=== PATIENT | female | born 1990 | race Caucasian/White ===

== ENCOUNTER 2020-02-01 15:08 | Outpatient (CLI) | payer OTHER, SELFPAY ==
--- NOTE | ~2020-02-01 | CT_ITS ---
EXAMINATION: CT abdomen pelvis wo con EXAM DATE: 02/01/2020 15:34 INDICATION: Low back pain, hematuria. TECHNIQUE: Spiral CT of the abdomen and pelvis was performed without contrast. Axial, coronal and sag ittal images were reviewed. The dose-length product (DLP) for this examination was 1370.04 mGy-cm. The exposure was tailored according to patient size (auto mA exposure control), and iterative reconst ruction (ASIR) was used as additional dose reduction technique. There is no prior study for comparis on. FINDINGS: There is no nephrolithiasis or hydronephrosis. Uterus is anteverted. Complex cystic bilat eral ovarian masses versus polycystic kidney disease, with the left ovary measuring about 10 cm in ma ximal dimension and the right ovary measuring about 9 cm in maximal dimension. The bladder is unrema rkable. There is mild hepatic steatosis without suspicious focal lesion identified. Spleen, adrenal glands, pancreas are unremarkable. Gallbladder is unremarkable. No biliary obstruction. There is n o retroperitoneal or pelvic lymphadenopathy. The appendix is normal. The stomach and small bowel are unremarkable. There is expected amount of c olonic stool. No free intraperitoneal gas. The heart is normal in size. There are no pericardial or pleural effusions. The lung bases are unremarkable. The bones are unremarkable. IMPRESSION: 1. Complex cystic bilateral ovarian masses vs. Polycystic ovaries or hyperstimulation syndrome. Cons ider pelvic sonogram, [employer] consult. 2. No nephrolithiasis, hydronephrosis or acute intra-abdominal findings Reviewed, dictated and finalized at location A. IMPRESSION: 1. Complex cystic bilateral ovarian masses vs. Polycystic ovaries or hyperstim ulation syndrome. Consider pelvic sonogram, [employer] consult. 2. No nephrolithiasis, hydronephrosis or acute intra-abdominal findings
[2020-02-01 16:36] LABS: Anion Gap 12.4 mmol/L (7-16); Blood Urea Nitrogen 11 mg/dL (7-17); Calcium 9.2 mg/dL (8.4-10.2); Carbon Dioxide 28 mmol/L (22-30); Chloride 103 mmol/L (98-107); Estimated Glomerular Filt Rate > 60; Glucose 100 mg/dL (65-105); Potassium 4.4 mmol/L (3.4-5.0); Sodium 139 mmol/L (137-145)
[2020-02-01 16:47] LABS: Hemoglobin 13.3 g/dL (12.0-15.0); Mean Corpuscular HGB Conc 31.7 g/dl (32-36); Mean Corpuscular Hemoglobin 26.1 pg (26-34); Mean Corpuscular Volume 82.5 fl (80-100); Mean Platelet Volume 10.4 fl (7.4-10.4); Platelet Count Result 304 k/mm3 (150-375); Red Blood Count 5.09 M/mm3 (4.2-5.4); Red Cell Distribution Width 13.2 % (11.5-14.5); White Blood Count 11.3 K/mm3 (4.5-10.0)
== END 2020-02-01 15:09 | disposition home or self-care (01) ==
PROVIDERS: PCP Family Medicine; Visit Provider Nurse Practitioner Family
DX: R31.9 Hematuria, unspecified (principal); R10.9 Unspecified abdominal pain; M54.5 Low back pain; R93.89 Abnormal findings on diagnostic imaging of other specified body structures
CPT/HCPCS: 36415; 74176; 80048; 85027

== ENCOUNTER 2020-02-02 08:11 | Emergency (ER) | payer OTHER, SELFPAY ==
--- NOTE | ~2020-02-02 | US_ITS ---
US pelvic complete w TV DATE: 02/02/2020 08:59 INDICATION: Abnormal vaginal bleeding TECHNIQUE: Real-time imaging via transabdominal and transvaginal approaches COMPARISON: 02/01/2020 CT abdomen pelvis FINDINGS: The uterus measures 8.9 cm height, 4.3 cm AP and 5.4 cm transverse dimension. Endometrial c omplex measures approximately 12 mm AP dimension. There is a large multi locular complex mixed cystic and solid pelvic mass extending across the midlin e. No normal left or right ovary is evident. The lesion appears to measure in excess of 10 cm maximal dimension. IMPRESSION: Large complex multi locular mass in the pelvis, likely of ovarian origin. Malignancy is n ot excluded. Gynecologic consult is recommended. Reviewed, dictated and finalized at [facility]. Reviewed, dictated and finalized at location A. IMPRESSION: Large complex multi locular mass in the pelvis, likely of ovarian o rigin. Malignancy is not excluded. Gynecologic consult is recommended.
[2020-02-02 08:19] VITALS: BP 131/80; PULSE 79; RESP 18; TEMP 36.4; O2SAT 100
--- NOTE | 2020-02-02 08:42 | ED.FEMALEGU ---
HPI - Female Genitourinary General Chief complaint: Vaginal Bleeding Stated complaint: vag bleed, back pain Time Seen by Provider: 02/02/20 08:20 Source: patient Mode of arrival: ambulatory Limitations: no limitations History of Present Illness HPI Narrative: This patient is a 29 year old female who presents for evaluation of back pain and abnormal vaginal bleeding. Patient states she developed mid lower back pain on . She reports this pain is worse with movement. She has been taking tylenol without relief. She was evaluated by her PCP yesterday for this pain and she had labs and a CT abdomen /pelvis performed. Her CT shows polycystic ovaries but no other abnormalities. This morning she has come to ER because she started having heavy vaginal bleeding. Her last menstrual cycle was 2 weeks ago and she reports her bleeding was light. Previous to that cycle she had not had a period in months. Today she started having vaginal bleeding at 5 am. She reported passing large blood clot so she became scared. She has only used 2 pad since 5 am. She denies fever, vomiting, lightheadedness or dizziness. Related Data Allergies Allergy/AdvReac Type Severity Reaction Status Date / Time No Known Allergies Allergy Verified 02/02/20 08:22 Review of Systems Review of Systems: All systems reviewed & are unremarkable except as noted in HPI and below Constitutional: Constitutional: Reports as per HPI and Denies chills Gastrointestinal: Gastrointestinal: Denies abdominal pain, Denies nausea and Denies vomiting Genitourinary: Genitourinary: Reports abnormal vaginal bleeding Musculoskeletal: Musculoskeletal: Reports back pain PMFSH Social History Social History Smoking status: Never smoker Alcohol intake: never Exam Narrative: Exam Narrative: GENERAL: Well-appearing, well-nourished, and in no acute distress. HEAD: Normocephalic, atraumatic EYES: PERRLA and EOMI, conjunctiva clear without discharge EARS: TM's clear bilaterally without erythema or dullness NOSE: Nares clear, no rhinorrhea or epistaxis THROAT:Mucous membranes moist, Oropharynx normal without erythema, exudate, peritonsillar swelling or fluctuance NECK: Supple, without lymphadenopathy or mass RESPIRATORY: No respiratory distress, Airway patent, Respirations non-labored, Clear to auscultation without rales, rhonchi or wheeze HEART: Regular rate and rhythm. No murmur heard. Normal peripheral pulses. ABDOMEN: Soft, nontender, nondistended, normal active bowel sounds. No masses. No rebound or guarding, No organomegaly. EXTREMITIES: No edema, normal strength with full range of motion. SKIN: Warm, dry, normal color without rash NEURO: Alert and oriented x3. CN 2-12 grossly intact. No focal deficits. PSYCH: Normal mood and affect. : Speculum Exam - Vagina: vaginal bleeding (minimal vaginal bleeding, no clots) Back/Spine/Pelvis: Back: no CVA tenderness Course Consultations Consultation #1: I Discsused case with Dr. Sunni Vuong who states he can see patient on Tuesday morning anytime after 8 am . Okay to prescribe pain medication Date: 02/02/20 Time: 10:00 Vital Signs Vital signs: Vital Signs Temperature 97.6 F 02/02/20 08:19 Pulse Rate 79 02/02/20 08:19 Respiratory Rate 18 02/02/20 08:19 Blood Pressure 131/80 02/02/20 08:19 Pulse Oximetry 100 02/02/20 08:19 Temperature 97.6 F 02/02/20 08:19 Pulse Rate 82 02/02/20 12:00 Respiratory Rate 19 02/02/20 12:00 Blood Pressure 125/76 02/02/20 12:00 Pulse Oximetry 100 02/02/20 12:00 MDM - Female Genitourinary Lab Data Attestation: I reviewed the patient's lab results. Lab results narrative: patient had lab less than 24 hours ago. her bleeding is not significant to believe repeat labs needed. Labs: UCG Bedside Result Negative Reference Range: Negative Imaging Data Radio
[2020-02-02] MEDS: diazePAM 5 MG TABLET PO (09:04)
[2020-02-02] MEDS: KETOROLAC (*BKC) 60 MG/2 ML VIAL IM (09:04)
[2020-02-02 09:14] VITALS: BP 123/75; BP 125/73; PULSE 86; PULSE 87
[2020-02-02 09:15] VITALS: BP 99/72; PULSE 101
[2020-02-02 12:00] VITALS: BP 125/76; PULSE 82; RESP 19; O2SAT 100
== END 2020-02-02 12:01 | disposition home or self-care (01) ==
PROVIDERS: Emergency Provider General Practice; PCP Family Medicine
DX: E28.2 Polycystic ovarian syndrome (principal)
CPT/HCPCS: 76830; 76856; 81025; 96372; 99284; A9270; J1885

== ENCOUNTER 2020-02-07 07:58 | Outpatient (CLI) | payer OTHER, SELFPAY ==
[2020-02-07 08:17] LABS: Hematocrit 44.3 % (37.0-47.0); Hemoglobin 14.1 g/dL (12.0-15.0); Mean Corpuscular HGB Conc 31.8 g/dl (32-36); Mean Corpuscular Volume 81.6 fl (80-100); Mean Platelet Volume 10.1 fl (7.4-10.4); Platelet Count Result 314 k/mm3 (150-375); Red Blood Count 5.43 M/mm3 (4.2-5.4); Red Cell Distribution Width 13.4 % (11.5-14.5); White Blood Count 11.3 K/mm3 (4.5-10.0)
[2020-02-07 08:29] LABS: Anion Gap 13.4 mmol/L (7-16); Blood Urea Nitrogen 12 mg/dL (7-17); Calcium 9.3 mg/dL (8.4-10.2); Carbon Dioxide 29 mmol/L (22-30); Chloride 99 mmol/L (98-107); Estimated Glomerular Filt Rate > 60; Glucose 107 mg/dL (65-105); Potassium 4.4 mmol/L (3.4-5.0); Sodium 137 mmol/L (137-145)
== END 2020-02-07 07:59 | disposition home or self-care (01) ==
PROVIDERS: Anesthesiology; PCP Family Medicine; Visit Provider Student in an Organized Health Care Education/Training Program
DX: Z79.899 Other long term (current) drug therapy (principal); R10.2 Pelvic and perineal pain; Z01.818 Encounter for other preprocedural examination
CPT/HCPCS: 36415; 80048; 85027; 86850; 86900; 86901

== ENCOUNTER 2020-02-12 01:00 | Outpatient (CLI) | payer OTHER, SELFPAY ==
[2020-02-12 19:35] LABS: SARS-CoV-2 RNA PCR Negative
== END 2020-02-12 01:01 | disposition home or self-care (01) ==
LOC: ANHCOVIDDT 01:00
PROVIDERS: PCP Family Medicine; Visit Provider Student in an Organized Health Care Education/Training Program
DX: Z01.812 Encounter for preprocedural laboratory examination (principal); Z11.59 Encounter for screening for other viral diseases
CPT/HCPCS: 87635; C9803; U0003

== ENCOUNTER 2020-02-14 01:40 | Day surgery (SDC) | payer OTHER, SELFPAY ==
[2020-02-06 12:32] VITALS: BMI 48.7
[2020-02-14] VITALS (11 sets, daily range): BP systolic 106–152; BP diastolic 70–95; PULSE 60–101; RESP 10–16; TEMP 36.1–36.7; O2SAT 92–100
--- NOTE | 2020-02-14 07:41 | PM.IMHP ---
H&P: HPI History of Present Illness Date/Time: 02/14/20 07:41 Chief complaint: pain, right ovarian mass Narrative: Janis Cardoso is a 29 year old female who initially presented with back pain. Pt suffered from back pain for over a week without relief before presented to the ER. Imaging performed in the ER showed a 10cm complex cystic structure coming from her ovary. Pt reports a history of PCOS diagnosed at the age of 20. She has had 2 prior ovarian cyst removal surgeries. Given the size of the cystic structure and the patient being symptomatic, decision was made to proceed with another surgery to remove the cyst. Review of Systems Cardiovascular: Cardiovascular: Denies chest pain, Denies leg edema, Denies palpitations, Denies dyspnea and Denies dyspnea on exertion Respiratory: Respiratory: Denies cough, Denies dyspnea and Denies dyspnea on exertion Gastrointestinal: Gastrointestinal: Denies abdominal pain, Denies constipation, Denies diarrhea, Denies nausea and Denies vomiting Genitourinary: Genitourinary: Denies hematuria, Denies urinary frequency, Denies dysuria, Denies pelvic pain, Denies urinary incontinence and Denies vaginal discharge Neurologic: Reports system reviewed and no additional complaints, except as documented Psychiatric: Psychiatric: Reports no additional psychiatric complaints Endocrine: Endocrine: Denies palpitations PMFSH Social History Social History Smoking status: Never smoker Alcohol intake: never Spiritual care concerns: No Meds Home Medications and Allergies Home Medications Medication Instructions Recorded Confirmed Type acetaminophen 300 mg-codeine 30 mg 1 tablet PO Q8H PRN #14 tablet 02/01/20 02/06/20 Rx tablet ciprofloxacin HCl 500 mg tablet 500 mg PO Q12H #10 tablet 02/01/20 02/06/20 Rx oxycodone-acetaminophen [Percocet] 1 tablet PO Q6H PRN #14 tablet 02/02/20 02/06/20 Rx drospirenone-ethinyl estradiol 1 tablet PO DAILY 02/06/20 02/06/20 History metformin 500 mg PO BID 02/06/20 02/06/20 History spironolactone 100 mg PO BID 02/06/20 02/06/20 History Allergies Allergy/AdvReac Type Severity Reaction Status Date / Time latex Allergy rash, Verified 07/29/20 12:33 swelling Exam Const: General: no acute distress Eyes: EOM: EOMs intact bilaterally Neck: Neck: supple Thyroid: thyroid normal Chest: Breast/axilla inspection: normal inspection of the breasts Breast/axilla palpation: normal palpation of the breasts, normal palpation of the axillae and no axillary lymphadenopathy Resp: Effort & Inspection: normal respiratory effort Auscultation: clear to auscultation bilaterally Cardio: Rate: regular rate Rhythm: regular rhythm GI: Inspection: non-distended GI Palp: Yes Soft to palpation, No Tenderness to palpation present (GI) and No Guarding due to palpation present (GI) Auscultation: normal bowel sounds : General: No bladder normal to palpation External Female Exam: normal external appearance Speculum Exam - Vagina: normal vaginal discharge and No vaginal bleeding Speculum Exam - Cervix: nontender Bimanual exam- vagina & uterus: No bladder normal to palpation and No Cervical tenderness present OB/external & speculum: No vaginal bleeding Skin: General skin exam: normal color and no rashes or lesions noted Neuro: Cognition (Neuro): normal cognition Speech: normal speech Extrem: General: normal to inspection and no edema Psych: Mental Status: mental status grossly normal Affect: normal affect Assessment and Plan Assessment and plan (1) Ovarian cyst: Code(s): N83.209 - Unspecified ovarian cyst, unspecified side Status: Acute Assessment and Plan: pt presented with back pain and was found to have a 10cm complex cystic structure originating from the Right ovary pt has had 2 prior ovarian cystectomies pt struggles with PCOS given the size and symptoms patient is having,
[2020-02-14] MEDS: LACTATED RINGERS 1,000 ML 30 ML IV CONT ×2 (10:55→14:33)
[2020-02-14] MEDS: ACETAMINOPHEN 500 MG TABLET 1000 MG PO (10:59)
[2020-02-14] MEDS: KETOROLAC 15 MG/ML VIAL (*BKC) IV PUSH (11:00)
--- NOTE | 2020-02-14 11:34 | P.PNAN_ITS ---
Anes - Initial Pre Proc Eval Procedure: Operation Date: 02/14/20 12:00 Proposed Procedures p Laparoscopic Right Ovarian Cystectomy, Possible Right Salpingo-Oophorectomy - Johny Singh MD Date/Time: 02/14/20 11:34 Surgeon: Johny Singh MD Pre Op Diagnosis: pain, right ovarian mass Patient Data Age: 29 Gender: F Height: 5 ft 9 in Weight: 141.5 kg Last Vital Signs Temp 36.7 C 02/14/20 10:00 Pulse 101 H 02/14/20 10:00 Resp 16 02/14/20 10:00 BP 111/95 H 02/14/20 10:00 Pulse Ox 97 02/14/20 10:00 Allergies Allergy/AdvReac Type Severity Reaction Status Date / Time latex Allergy rash, Verified 02/06/20 12:33 swelling Home Medications Medication Instructions Recorded Confirmed Type acetaminophen 300 mg-codeine 30 mg 1 tablet PO Q8H PRN #14 tablet 02/01/20 02/06/20 Rx tablet ciprofloxacin HCl 500 mg tablet 500 mg PO Q12H #10 tablet 02/01/20 02/06/20 Rx oxycodone-acetaminophen [Percocet] 1 tablet PO Q6H PRN #14 tablet 02/02/20 02/06/20 Rx drospirenone-ethinyl estradiol 1 tablet PO DAILY 02/06/20 02/06/20 History metformin 500 mg PO BID 02/06/20 02/06/20 History spironolactone 100 mg PO BID 02/06/20 02/06/20 History Patient hx anesthesia problems: none Family hx anesthesia problems: none [facility] Past Medical History Medical History Polycystic ovarian syndrome Family History Family History Mother Family history of allergic disorder Father Family history of diabetes mellitus in first degree relative Other Diabetes mellitus Social History Social History Smoking status: Never smoker Alcohol intake: never Spiritual care concerns: No Anes - Eval Final PreProcedure Day of Procedure 02/14/20 11:34 Patient weight: morbidly obese Heart: regular rate and rhythm Lungs: clear to auscultation Airway: Mallampati scale class II Neurological: alert and oriented Last oral intake: >/= 8 hours ASA classification: III Emergent: no Anesthetic plan: proceed Anesthesia type and monitoring: general ETT and standard monitoring Informed Consent: The patient's anesthetic plan and its attendant risks and benefits were discussed with the patient/family/POA. Questions were solicited and answers provided to the satisfaction of the patient/family/POA.
[2020-02-14] MEDS: METHYLENE BLUE 0.5% INJ 10 ML AMPULE 20 ML IRRIGATION (14:08)
--- NOTE | 2020-02-14 14:46 | PM.PROC ---
Procedure Note - Detailed Date of procedure: 02/14/20 Pre-op diagnosis: pain, right ovarian mass Procedure performed: Diagnostic laparoscopy left salpingo-oophorectomy right ovarian cystostomy cystoscopy Description of procedure: FULL GYNECOLOGY OPERATIVE REPORT INDICATIONS: The risks, benefits and alternatives of laparoscopy were discussed with the patient, including but not limited to infection, severe loss of blood, cardiac arrest, , thrombosis, injury to other organs such as bowel, bladder or ureter, fistula, injury to blood vessels, risk of blood transfusion, loss of one or more ovary, and possible need for laparotomy to complete the surgery or any repair. OPERATIVE PROCEDURE: The patient was taken to the operating room where general endotracheal anesthesia was undertaken and found to be adequate. She was then prepped and draped in the dorsal lithotomy position and placed in adjustable stirrups. A pre-operative team brief and a time out were completed. A catheter was placed to drain the bladder. Retractors were placed placed in the vagina and the cervix was identified. An acorn uterine manipulator was placed. [Attention was then turned to the abdomen which was anesthetized umbilically with injected anesthestic. A 10 mm skin incision was made in the umbilicus. A 10 mm optical trocar was then placed with direct camera visualization of the abdominal layers during placement. The trocar stylet was removed and the camera was used to verify intra-abdominal placement. CO2 insufflation was then connected and resumed. The pelvis was inspected. The left ovarian was noted to be enlarged with several cysts. The ovary was also adherent to the bowel omentum and pelvic side wall. A left lower quadrant 5 mm port was placed, in addition to a right lower quadrant 5 port in the standard fashion after using local anesthetic. The large amount of omental adhesions were carefully taken down from the ovary using the Ligasure device. Once the omentum was removed from the ovary, the ovary was noted to have a large amount of cysts. Laparoscopic aspiration needle was introduced into the field under direct visualization. Multiple cysts were then drained with the needle placed on suction. Clear fluid was drained from the cysts. After draining several cysts it was indiscernible what was function ovary vs cyst. The ovary was also still adherent to the pelvic side wall. The decision was then made to proceed with left salpingo-oophorectomy. The left pelvic sidewall peritoneum was incised to help identify the left ureter. The ureter was identified and its course followed. The left ovary was then incised from the pelvic side wall using the Ligasure device all with clear visualization of the ureter. The left infundibulopelvic ligament was identified and triple ligated with the ligasure device. The dissection was then carried out toward the uterus along the inferior mesosalpinx of the left fallopian tube. The left ovary and fallopian tube were then freed from the ovarian ligament. Good hemostasis was noted from all terry. After the left ovary and fallopian tube were removed, it was noted that the right ovary was also covered with inumerable cysts. The right ovary was lifted from the posterior cul de sac. Laparoscopic aspiration needle was again introduced and multiple cysts were drained. Again, clear cystic fluid was drained. All of the accessible cysts were drained and multiple cystotomies were made with a monopolar hook. Given that the left ovary had to be removed, every attempt was made to reserve functional ovarian tissue in the right ovary. After drainage of all cysts, the ovary was placed back in the posterior cul de sac. Good hemostasis was noted. A laparoscopic pouch was then introduced into the abdomen and the left fallopian tube and ovary were placed in the pouch. The surgical specimen was then removed from the abdomen through the umbilical port. The surgical field was thoroughly irriga
[2020-02-14] MEDS: ONDANSETRON INJ 4 MG/2 ML VIAL IV PUSH (15:15)
== END 2020-02-14 17:12 | disposition home or self-care (01) ==
PROVIDERS: PCP Family Medicine; Visit Provider Student in an Organized Health Care Education/Training Program
PROC: (CPT 49320; principal; 2020-02-14 12:00)
DX: D27.1 Benign neoplasm of left ovary (principal); N73.6 Female pelvic peritoneal adhesions (postinfective); R10.2 Pelvic and perineal pain; E28.2 Polycystic ovarian syndrome; E66.01 Morbid (severe) obesity due to excess calories; Z68.42 Body mass index [BMI] 45.0-49.9, adult; Z79.84 Long term (current) use of oral hypoglycemic drugs
CPT/HCPCS: 58661; 88305; 88307; A9270; J0330; J1100; J1885; J1940; J2250; J2405; J2704; J3010; J7030; J7120; Q9968

== ENCOUNTER 2020-08-28 14:03 | Outpatient (CLI) | payer OTHER, SELFPAY ==
--- NOTE | ~2020-08-28 | XR_ITS ---
XR chest 2V DATE: 08/28/2020 14:43 INDICATION: Cough TECHNIQUE: PA and lateral views COMPARISON: None FINDINGS: Normal heart size. No pulmonary infiltrate or consolidation, pleural effusion or pulmonary vascular congestion or pneumothorax. IMPRESSION: No active cardiopulmonary disease Reviewed, dictated and finalized at location B. UTIVE ADMINISTRATIVE ASSISTANT
[2020-08-28 14:50] LABS: Basophils Percent Auto 0.6 % (0.2-1.2); Eosinophils Absolute Auto 0.1 K/mm3 (0-0.3); Eosinophils Percent Auto 2.2 % (0-4.4); Hematocrit 42.5 % (37.0-47.0); Hemoglobin 13.3 g/dL (12.0-15.0); Immature Granulocyte Absolute 0.03 K/mm3 (0.00-0.031); Immature Granulocyte Percent A 0.6 % (0-0.5); Lymphocytes Absolute Auto 2.19 K/mm3 (0.9-3.2); Lymphocytes Percent Auto 40.3 % (18.3-44.2); Mean Corpuscular HGB Conc 31.3 g/dl (32-36); Mean Corpuscular Hemoglobin 25.1 pg (26-34); Mean Corpuscular Volume 80.2 fl (80-100); Mean Platelet Volume 9.9 fl (7.4-10.4); Monocytes Absolute Auto 0.4 K/mm3 (0.1-0.6); Monocytes Percent Auto 8.1 % (2.6-8.5); Neutrophils Absolute Auto 2.6 K/mm3 (1.3-6.7); Neutrophils Percent Auto 48.2 % (45.5-73.1); Platelet Count Result 258 k/mm3 (150-375); Red Cell Distribution Width 14.3 % (11.5-14.5); White Blood Count 5.4 K/mm3 (4.5-10.0)
[2020-08-28 14:55] LABS: Anion Gap 9 mmol/L (8-16); Blood Urea Nitrogen 12 mg/dL (7-17); Calcium 8.5 mg/dL (8.4-10.2); Carbon Dioxide 29 mmol/L (22-30); Chloride 103 mmol/L (98-107); Estimated Glomerular Filt Rate > 60; Glucose 106 mg/dL (65-105); Potassium 4.2 mmol/L (3.4-5.0); Sodium 141 mmol/L (137-145)
== END 2020-08-28 14:04 | disposition home or self-care (01) ==
PROVIDERS: PCP Family Medicine; Visit Provider Nurse Practitioner Family
DX: R19.7 Diarrhea, unspecified (principal); R68.89 Other general symptoms and signs; R05 Cough; R06.02 Shortness of breath
CPT/HCPCS: 36415; 71046; 80048; 85025

== ENCOUNTER → 2020-08-29 08:23 | Outpatient (CLI) | payer OTHER, SELFPAY ==
[2020-08-29 21:58] LABS: SARS-CoV-2 RNA PCR Positive
[2020-09-01 09:24] LABS: Influenza Control Positive
== END ==
PROVIDERS: PCP Family Medicine; Visit Provider Nurse Practitioner Family
DX: U07.1 COVID-19 (principal)
CPT/HCPCS: 87804; C9803; U0003; U0005

== ENCOUNTER 2020-09-10 10:54 | Outpatient (CLI) | payer OTHER, SELFPAY ==
--- NOTE | ~2020-09-10 | XR_ITS ---
EXAMINATION: XR chest 2V DATE: 09/10/2020 11:23 INDICATION: Shortness of breath TECHNIQUE: PA and lateral views of the chest were obtained. COMPARISON: Chest radiograph dated 08/28/2020 FINDINGS: The lungs remain clear with no focal airspace opacities, pulmonary edema, pleural effusion or pneumot horax. The cardiomediastinal silhouette is normal. Mild thoracic spondylosis. IMPRESSION: 1. No acute cardiopulmonary disease. Reviewed, dictated and finalized at location B. ILE ARTIST
--- NOTE | 2020-09-10 11:55 | ECG_ITS ---
Measurements Intervals [place] Rate: 89 P: 45 NV: 137 QRS: 49 QRSD: 90 T: 25 QT: 343 QTc: 417 Interpretive Statements SINUS RHYTHM NORMAL ECG Electronically Signed On 09-10-2020 12:06:00 BOAT DOCK OPERATOR by Damien Gomez D.O.
== END 2020-09-10 10:55 | disposition home or self-care (01) ==
PROVIDERS: PCP Family Medicine; Visit Provider Nurse Practitioner Family
DX: R06.02 Shortness of breath (principal); R00.0 Tachycardia, unspecified
CPT/HCPCS: 71046; 93005

== ENCOUNTER 2020-09-16 14:19 | Outpatient (CLI) | payer OTHER, SELFPAY ==
--- NOTE | ~2020-09-16 | CT_ITS ---
EXAMINATION: CTA chest PE protocol DATE: 09/16/2020 15:31 INDICATION: COVID-19 pneumonia. TECHNIQUE: Computed tomography angiography (CTA) of the chest was performed with 100 mL Omnipaque-350 intravenous contrast timed to evaluate the pulmonary arteries. Coronal maximum intensity projection 3D-reconstructions were created by the technologist. Automated exposure control and iterative reconst ruction technique were employed. The dose-length product was 921.33 mGy-cm. COMPARISON: Chest 2 views 09/10/2020 FINDINGS: There is no pneumonia or pleural effusion. The thyroid is enlarged with heterogeneous atten uation. The heart size is normal. No pericardial effusion. There is no pulmonary embolus. There is mi ld thoracic spondylosis. There is developmental anterior and posterior fusion at T4-T5. IMPRESSION: 1. No pulmonary embolus. 2. Enlarged, heterogeneous thyroid. Consider thyroid ultrasound for risk stratification. Reviewed, dictated and finalized at location A. E FUND MANAGER IMPRESSION: 1. No pulmonary embolus. 2. Enlarged, heterogeneous thyroid. Consider thyroid ultrasound for risk strati fication.
== END 2020-09-16 14:20 | disposition home or self-care (01) ==
PROVIDERS: PCP Family Medicine; Visit Provider Nurse Practitioner Family
DX: U07.1 COVID-19 (principal); R06.02 Shortness of breath; E04.9 Nontoxic goiter, unspecified
CPT/HCPCS: 71275; Q9967

== ENCOUNTER 2020-09-22 13:06 | Outpatient (CLI) | payer OTHER, SELFPAY ==
--- NOTE | ~2020-09-22 | US_ITS ---
EXAMINATION: US thyroid DATE: 09/22/2020 13:44 INDICATION: Enlarged thyroid. Encounter for other specified special examinations. TECHNIQUE: Multiple ultrasound images of the thyroid were obtained. COMPARISON: Chest CT 09/16/2020 FINDINGS: The right thyroid lobe measures 6.0 x 3.1 x 2.6 cm. The left thyroid lobe measures 6.3 x 3.2 x 3.5 c m. In the left thyroid lobe, there is a 3.7 cm predominantly solid, isoechoic, [id number]-[id number]-nucw nodul e with smooth margin without echogenic foci (TI-RADS TR3). In the right thyroid lobe, there is a 2.3 cm predominantly solid, isoechoic, vmgoi-zeqb-vzyx nodule with ill-defined margin without echogenic f oci (TR3). IMPRESSION: 1. Thyroid nodules. Ultrasound-guided fine-needle aspiration of the 3.7 cm left thyroid nodule is rec ommended. Reviewed, dictated and finalized at location A. IMPRESSION: 1. Thyroid nodules. Ultrasound-guided fine-needle aspiration of the 3.7 cm left thyroid nodule is recommended.
== END 2020-09-22 13:07 | disposition home or self-care (01) ==
LOC: ANHIMG 13:07
PROVIDERS: PCP Family Medicine; Visit Provider Nurse Practitioner Family
DX: E04.9 Nontoxic goiter, unspecified (principal); Z01.89 Encounter for other specified special examinations
CPT/HCPCS: 36415; 76536; 84439; 84443

== ENCOUNTER 2020-10-02 11:57 | Outpatient (CLI) | payer OTHER, SELFPAY ==
--- NOTE | ~2020-10-02 | US_ITS ---
EXAMINATION: US FNA w image guidance DATE: 10/02/2020 12:46 INDICATION: Left thyroid nodule TECHNIQUE: A time-out was performed to verify the patient's name, date of , and procedure to be performed . The procedure and its benefits and risks were discussed with the patient. Risks specifically discus sed included bleeding and infection. The patient understood the risks and agreed to proceed. The neck was prepped and draped in the usual sterile manner. 3 mL 1% lidocaine was used for local anesthesia . 6 passes were made with a 25G needle into the lesion. Appropriate needle location was documented with continuous sonographic guidance. The specimens were passed to the cardiac cath lab radiology technologist in the room. A sterile bandage was applied. There were no immediate complications. FINDINGS: Grayscale ultrasound images demonstrate biopsy needles advanced into the previous noted 3.7 cm solid isoechoic left thyroid nodule. IMPRESSION: 1. Successful ultrasound-guided fine needle aspiration of the 3.7 cm solid left thyroid nodule of co ncern. Reviewed, dictated and finalized at location A. IMPRESSION: 1. Successful ultrasound-guided fine needle aspiration of the 3.7 cm solid lef t thyroid nodule of concern.
== END 2020-10-02 11:58 | disposition home or self-care (01) ==
PROVIDERS: PCP Family Medicine; Visit Provider Nurse Practitioner Family
DX: E04.9 Nontoxic goiter, unspecified (principal)
CPT/HCPCS: 10005; 88173; 88305; 88307

== ENCOUNTER 2020-11-16 04:51 | Observation (INO) | payer OTHER, SELFPAY ==
[2020-11-16] VITALS (8 sets, daily range): BP systolic 118–141; BP diastolic 61–105; PULSE 85–110; RESP 16–21; TEMP 36.2–36.8; O2SAT 97–100; BMI 49.2
--- NOTE | ~2020-11-16 | US_ITS ---
EXAMINATION: US pelvic complete w TV DATE: 11/16/2020 07:55 INDICATION: History of polycystic ovary syndrome. Back pain. Comparison:Ultrasound dated 02/02/2020 TECHNIQUE: Multiple transabdominal and endovaginal sonographic images of the pelvis performed. FINDINGS: The uterus measures 8.4 x 4.1 x 4 cm. The endometrial complex measures 5 mm. The right ovary measures 7.8 x 6.4 x 4.9 cm. There is a large cluster of septated cyst in the right o vary measuring 6.5 x 5.3 x 4.1 cm. The left ovary is surgically absent. There is normal Doppler signa l in the right ovary. There is no free fluid in the pelvis. IMPRESSION: 1. Large complex right ovarian cyst measuring 6.5 x 5.3 x 4.1 cm which may relate to patient's known polycystic ovary syndrome, although other considerations suspicious cystadenoma/cystadenocarcinoma ar e not excluded. Reviewed, dictated and finalized at location A. IMPRESSION: 1. Large complex right ovarian cyst measuring 6.5 x 5.3 x 4.1 cm which may rela te to patient's known polycystic ovary syndrome, although other considerations suspicious cystadenoma/cystadenocarcinoma are not excluded.
--- NOTE | 2020-11-16 05:34 | PC.NURSE ---
Pt unable to void at this time. Straight cath refused. Urine cup at bedside.
[2020-11-16] MEDS: KETOROLAC 30 MG/ML VIAL (*BKC) IV PUSH (05:41)
--- NOTE | 2020-11-16 05:48 | ED.BACK ---
HPI - Back Pain/Injury General Chief Complaint: Back Pain/Injury <Magaly Daugherty MD - Last Filed: 11/16/20 19:29> Stated Complaint: lower back pain <Magaly Daugherty MD - Last Filed: 11/16/20 19:29> Time Seen by Provider: 11/16/20 04:58 <Magaly Daugherty MD - Last Filed: 11/16/20 19:29> Source: patient, RN notes reviewed and old records reviewed <Magaly Daugherty MD - Last Filed: 11/16/20 19:29> Mode of arrival: ambulatory <Magaly Daugherty MD - Last Filed: 11/16/20 19:29> Limitations: no limitations <Magaly Daugherty MD - Last Filed: 11/16/20 19:29> History of Present Illness HPI Narrative: This is a 30 year old female with history of polycystic ovarian syndrome who presents for evaluation of low back pain. She developed low back pain yesterday, and she states this pain is similar to when she had a large ovarian cyst in January 2020. She took pain medication yesterday afternoon without relief. Her pain is worse with movement. She denies associated nausea, vomiting, fever, abdominal pain, leg weakness, numbness or tingling. Her OBGYN is Dr. Singh. Pain is 04/19 <Magaly Daugherty MD - Last Filed: 11/16/20 19:29> MD elicited complaint: back pain <Magaly Daugherty MD - Last Filed: 11/16/20 19:29> Related Data Home Medications: Home Medications Medication Instructions Recorded Confirmed spironolactone 100 mg PO BID 02/06/20 09/17/20 leuprolide (3 month) 11.25 mg (3 11.25 mg IM [id number] 08/19/20 09/17/20 month) intramuscular syringe kit metformin 500 mg tablet 500 mg PO DAILY 08/19/20 09/17/20 duloxetine 20 mg PO DAILY 11/16/20 11/16/20 <Magaly Daugherty MD - Last Filed: 11/16/20 19:29> Allergies/Adverse Reactions: Allergies Allergy/AdvReac Type Severity Reaction Status Date / Time latex Allergy Severe rash, Verified 11/16/20 10:05 swelling <Magaly Daugherty MD - Last Filed: 11/16/20 19:29> Review of Systems Review of Systems: All systems reviewed & are unremarkable except as noted in HPI and below <Magaly Daugherty MD - Last Filed: 11/16/20 19:29> FORMERLY [facility], [facility]–1983 Past Medical History Medical History: Medical History Adult BMI 40.0-44.9 kg/sq m Diarrhea Morbid (severe) obesity due to excess calories Morbid obesity Polycystic ovarian syndrome Smell and taste disorder Taste absent <Magaly Daugherty MD - Last Filed: 11/16/20 19:29> Surgical History Surgical History: Surgical History Hx of removal of ovary <Magaly Daugherty MD - Last Filed: 11/16/20 19:29> Family History Family History: Family History Mother No problems noted. 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 Spiritual care concerns: No <Magaly Daugherty MD - Last Filed: 11/16/20 19:29> Exam Const: General: no acute distress and alert <Magaly Daugherty MD - Last Filed: 11/16/20 19:29> Orientation/consciousness: patient oriented x3 <Magaly Daugherty MD - Last Filed: 11/16/20 19:29> HENMT: Head: normocephalic and atraumatic <Magaly Daugherty MD - Last Filed: 11/16/20 19:29> Face and sinus: face symmetric <Magaly Daugherty MD - Last Filed: 11/16/20 19:29> Throat: uvula midline <Magaly Daugherty MD - Last Filed: 11/16/20 19:29> Eyes: EOM: EOMs intact bilaterally <Magaly Daugherty MD - Last Filed: 11/16/20 19:29>
--- NOTE | 2020-11-16 06:01 | PC.NURSE ---
Pt in restroom attempting to provide urine sample at this time.
--- NOTE | 2020-11-16 06:05 | PC.NURSE ---
Pt unable to provide urine sample at this time. Pt refusing straight catheter.
--- NOTE | 2020-11-16 06:22 | PC.NURSE ---
Pt unable to void at this time. Pt refusing straight catheter.
[2020-11-16 06:33] LABS: Basophils Absolute Auto 0.1 K/mm3 (0.0-0.1); Eosinophils Absolute Auto 0.2 K/mm3 (0-0.3); Eosinophils Percent Auto 2.2 % (0-4.4); Hemoglobin 13.6 g/dL (12.0-15.0); Immature Granulocyte Absolute 0.06 K/mm3 (0.00-0.031); Immature Granulocyte Percent A 0.6 % (0-0.5); Lymphocytes Absolute Auto 2.74 K/mm3 (0.9-3.2); Lymphocytes Percent Auto 29.1 % (18.3-44.2); Mean Corpuscular HGB Conc 30.9 g/dl (32-36); Mean Corpuscular Hemoglobin 25.5 pg (26-34); Mean Corpuscular Volume 82.6 fl (80-100); Monocytes Absolute Auto 0.6 K/mm3 (0.1-0.6); Monocytes Percent Auto 5.8 % (2.6-8.5); Neutrophils Absolute Auto 5.8 K/mm3 (1.3-6.7); Neutrophils Percent Auto 61.3 % (45.5-73.1); Platelet Count Result 296 k/mm3 (150-375); Red Blood Count 5.33 M/mm3 (4.2-5.4); Red Cell Distribution Width 13.2 % (11.5-14.5); White Blood Count 9.4 K/mm3 (4.5-10.0)
[2020-11-16] MEDS: HYDROmorphone HCL INJ (*CRX) 1 MG/ML SYR IV PUSH ×2 (06:40→08:21)
[2020-11-16 06:44] LABS: Alanine Aminotransferase 28 U/L (4-35); Albumin Level 4.2 g/dL (3.5-5.1); Alkaline Phosphatase 104 U/L (38-126); Anion Gap 7 mmol/L (8-16); Aspartate Amino Transferase 28 U/L (14-36); Bilirubin,Total 0.4 mg/dL (0.2-1.3); Blood Urea Nitrogen 15 mg/dL (7-17); Calcium 9.4 mg/dL (8.4-10.2); Carbon Dioxide 28 mmol/L (22-30); Chloride 105 mmol/L (98-107); Estimated CRCL calculation 129 ml/min; Estimated Glomerular Filt Rate > 60; Glucose 122 mg/dL (65-105); Potassium 4.3 mmol/L (3.4-5.0); Sodium 140 mmol/L (137-145)
--- NOTE | 2020-11-16 06:50 | PC.NURSE ---
urine sent down on pt at this time.
[2020-11-16 07:20] LABS: Add Urine Microscopic? YES; Appearance Urine Cloudy (Clear); Bacteria Urine 4+ /hpf; Bilirubin Urine Negative (Negative); Blood Urine 1+ (Negative); Color Urine Amber (Yellow); Glucose Urine UA Negative (Negative); Ketones Urine Negative (Negative); Leukocyte Esterase Ur 3+ LEU/UL (Negative); Mucus Urine Moderate /lpf; Nitrate Urine Negative (Negative); Protein Urine 2+ mg/dL (Negative); Squamous Epithelial Cell Urine Many /hpf (Few); Urobilinogen Urine Negative mg/dL (<2.0); WBC Urine >75 /hpf
--- NOTE | 2020-11-16 09:59 | ADMGEN ---
This patient, Janis Cardoso, was admitted to Medical Room 246-01. Patient/family oriented to hospital policies and general routines including ID bracelet, bed and alarms, visiting hours, pain management, procedures, bathroom and other care routines, personal items, smoking policy, room service/diet, and visiting hours. Information on how to activate the Rapid Response Team has been discussed. Patient/Family are encouraged to report perceived risks to care and to ask questions if they do not understand what they are told or what they should do.
[2020-11-16] MEDS: LACTATED RINGERS 1,000 ML 100 ML IV CONT (10:16)
[2020-11-16] MEDS: oxyCODONE HCL (*CRX) 5 MG TAB IR PO ×3 (13:17→22:01)
[2020-11-16] MEDS: oxyCODONE/ACETAMINOPHEN (*CRX) 5-325 MG TABLET 1 TABLET PO ×3 (13:17→22:02)
--- NOTE | 2020-11-16 16:10 | PM.IMHP ---
H&P: HPI History of Present Illness Date/Time: 11/16/20 16:10 30-year-old G0 status post left salpingo-oophorectomy admitted through the ER with right lower quadrant pain. 5x6cm complex right ovarian cyst is seen. This patient has a history of polycystic ovaries for previous laparoscopies the past pain is severe which is requiring narcotic treatment. She will undergo laparoscopic right cystectomy with possible right salpingo-oophorectomy. She states she would like to have her uterus removed as well and we will schedule this in the future pending the results of this laparoscopy. Risks and benefits were reviewed Chief Complaint: Right lower quadrant pain Review of Systems Review of Systems: All systems reviewed & are unremarkable except as noted in HPI and below PMFSH Past Medical History Medical History Adult BMI 40.0-44.9 kg/sq m Diarrhea Morbid (severe) obesity due to excess calories Morbid obesity Polycystic ovarian syndrome Smell and taste disorder Taste absent Surgical History Surgical History Hx of removal of ovary Family History Family History Mother No problems noted. 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 Spiritual care concerns: No Meds Home Medications and Allergies Home Medications Medication Instructions Recorded Confirmed Type spironolactone 100 mg PO BID 02/06/20 11/16/20 History leuprolide (3 month) 11.25 mg (3 11.25 mg IM [id number] 08/19/20 11/16/20 History month) intramuscular syringe kit metformin 500 mg tablet 500 mg PO BID 08/19/20 11/16/20 History duloxetine 20 mg PO DAILY 11/16/20 11/16/20 History Allergies Allergy/AdvReac Type Severity Reaction Status Date / Time latex Allergy Severe rash, Verified 11/16/20 10:05 swelling Vital Signs Vital Signs - 24 hr 11/16/20 04:54 11/16/20 06:25 11/16/20 07:10 Temperature 98.2 F 98.2 F Pulse Rate 110 H 91 Respiratory Rate 16 18 Blood Pressure 141/105 H 131/86 Pulse Oximetry 100 99 11/16/20 08:22 11/16/20 08:51 11/16/20 10:00 Temperature 98.2 F 97.2 F L Pulse Rate 101 H 85 Respiratory Rate 18 20 Blood Pressure 128/98 H 124/77 Pulse Oximetry 100 98 11/16/20 14:00 Temperature 97.5 F L Pulse Rate 93 Respiratory Rate 21 H Blood Pressure 122/61 Pulse Oximetry 97 Exam Const: General: no acute distress Eyes: General: appearance normal, both eyes and all related structures Neck: Neck: supple and no JVD Thyroid: thyroid normal Resp: Effort & Inspection: normal respiratory effort Auscultation: clear to auscultation bilaterally Cardio: Rate: regular rate Rhythm: regular rhythm GI: Inspection: non-distended GI Palp: Yes Soft to palpation, No Tenderness to palpation present (GI) and No Guarding due to palpation present (GI) Auscultation: normal bowel sounds : General: Yes bladder normal to palpation External Female Exam: normal external appearance Speculum Exam - Vagina: normal appearance of the vagina Speculum Exam - Cervix: Cervical os closed Bimanual Exam- Adnexa, other: Adnexal mass present on the right Skin: General skin exam: no rashes or lesions noted Extrem: General: normal to inspection and no edema Psych: Mental Status: mental status grossly normal Affect: normal affect H&P: Results Labs Labs: Short CBC 11/16/20 Range/Units 06:23 WBC 9.4 (4.5-10.0) K/mm3 Hgb 13.6 (12.0-15.0) g/dL Hct 44.0 (37.0-47.0) % Pl
[2020-11-17] VITALS (13 sets, daily range): BP systolic 119–138; BP diastolic 59–103; PULSE 89–102; RESP 12–20; TEMP 36.1–37.1; O2SAT 92–100
[2020-11-17] MEDS: oxyCODONE HCL (*CRX) 5 MG TAB IR PO (04:57)
[2020-11-17] MEDS: oxyCODONE/ACETAMINOPHEN (*CRX) 5-325 MG TABLET 1 TABLET PO (04:58)
[2020-11-17] MEDS: LACTATED RINGERS 1,000 ML 100 ML IV CONT (07:43)
--- NOTE | 2020-11-17 07:46 | WPDHPUPDATE1 ---
History and Physical Update Update Date/Time: 11/17/20 07:46 History and Physical has been reviewed, including an updated exam of the patient. There are NO changes in the patient's condition. Risks, benefits, and alternatives have been discussed and questions answered. Patient agrees to proceed with procedure.
--- NOTE | 2020-11-17 09:12 | P.PNAN_ITS ---
Anes - Initial Pre Proc Eval Procedure: Operation Date: 11/17/20 10:00 Proposed Procedures p Diagnostic Laparoscopy, Right Cystectomy, Possible Right Salpingo- oophorectomy(Right) - Peña See MD Date/Time: 11/17/20 09:12 Surgeon: Peña See MD Pre Op Diagnosis: ovarian cyst Patient Data Age: 30 Gender: F Height: 5 ft 8 in Weight: 147 kg Last Vital Signs Temp 36.9 C 11/17/20 05:50 Pulse 89 11/17/20 05:50 Resp 14 11/17/20 05:50 BP 122/59 L 11/17/20 05:50 Pulse Ox 100 11/17/20 05:50 Allergies Allergy/AdvReac Type Severity Reaction Status Date / Time latex Allergy Severe rash, Verified 11/16/20 10:05 swelling Home Medications Medication Instructions Recorded Confirmed Type spironolactone 100 mg PO BID 02/06/20 11/16/20 History leuprolide (3 month) 11.25 mg (3 11.25 mg IM [id number] 08/19/20 11/16/20 History month) intramuscular syringe kit metformin 500 mg tablet 500 mg PO BID 08/19/20 11/16/20 History duloxetine 20 mg PO DAILY 11/16/20 11/16/20 History Patient hx anesthesia problems: none Family hx anesthesia problems: none PMFSH Past Medical History Medical History Adult BMI 40.0-44.9 kg/sq m Diarrhea Morbid (severe) obesity due to excess calories Morbid obesity Polycystic ovarian syndrome Smell and taste disorder Taste absent Surgical History Surgical History Hx of removal of ovary Family History Family History Mother No problems noted. 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 Questions were solicited and answers provided to the satisfaction of the patient/family/POA.
[2020-11-17] MEDS: LACTATED RINGERS 1,000 ML 30 ML IV CONT ×2 (09:21→12:00)
--- NOTE | 2020-11-17 11:17 | PM.PROC ---
Procedure Note - Detailed Date of procedure: 11/17/20 Pre-op diagnosis: ovarian cyst Surgeon: Peña See MD Postop diagnosis complex right ovarian cyst Procedure: Laparoscopic right salpingo-oophorectomy EBL: 25cc Anesthesia: General endotracheal Findings: Complex right ovarian cyst Complications: None Description of procedure: The patient was prepped and draped in the normal sterile fashion placed in the dorsal lithotomy position. Under excellent general trach anesthesia weighted speculum placed in posterior fornix vagina. Anterior lip of the cervix grasped with single-tooth tenaculum the Vazquez's cannula inserted the cervix. These were attached to each other and to be used for you later for uterine manipulation. Bladder was emptied of clear urine. Weighted speculum was removed and gloves were changed. A supraumbilical incision made the Veress needle passed in the abdomen. The abdomen filled with CO2 gas to 15mm Hg. The 5mm trocar advanced in the abdomen so visualized noted seen the gas reattaching the patient placed in Trendelenburg. A suprapubic incision made the 5mm trocar advanced under direct visualization assuring no injury. A huge complex cyst was seen on the right which was at completely made the ovary appear completely irregular. Decision was made to remove the ovary as it had been discussed with the patient. Right lower quadrant incision made and the 10mm trocar advanced under direct visualization assuring no injury. The LigaSure was used to place across the infundibulopelvic structure and the this was then placed in an Endo-Catch. This was removed piecemeal through the right lower quadrant. Blood loss was estimated 25cc. The gas removed from the abdomen the incisions closed with 4 Monocryl and glue patient went to recovery in satisfactory condition. All sponge, needle, instrument counts were correct. There were no immediate complications
[2020-11-17] MEDS: HYDROcodone/acetaminophen (*CRX) 10-325 MG TABLET 1 TAB PO ×3 (12:53→20:26)
[2020-11-17] MEDS: ONDANSETRON INJ 4 MG/2 ML VIAL IV PUSH (12:55)
[2020-11-17] MEDS: DULoxetine HCL 20 MG CAPSULE.DR PO (17:20)
[2020-11-17] MEDS: SPIRONOLACTONE 50 MG TABLET 100 MG PO (17:20)
[2020-11-18 00:39] VITALS: BP 106/62; PULSE 85; RESP 16; TEMP 36.6; O2SAT 97
[2020-11-18] MEDS: HYDROcodone/acetaminophen (*CRX) 10-325 MG TABLET 1 TAB PO ×3 (04:18→12:25)
[2020-11-18 05:24] VITALS: BP 120/63; PULSE 91; RESP 18; TEMP 36.7; O2SAT 98
--- NOTE | 2020-11-18 07:56 | WPDANESPN ---
Anes - Prog Note Post-Op Date/Time: 11/18/20 07:56 Cardiovascular status: normal Respiratory status: normal Airway patency: baseline Mental status: baseline Post-Op hydration status: normal Vital Signs: Last Vital Signs Temp 36.7 C 11/18/20 05:24 Pulse 91 11/18/20 05:24 Resp 18 11/18/20 05:24 BP 120/63 11/18/20 05:24 Pulse Ox 98 11/18/20 05:24 Pain Score (VAS): 3 I/O: Intake & Output 11/17/20 11/17/20 11/18/20 15:59 23:59 07:59 Intake Total 400 340 450 Output Total 250 100 Balance 150 340 350 Laboratory Tests 11/16/20 06:23 11/16/20 06:23 Microbiology 11/16/20 06:50 Urine Clean Catch Urine Culture - Final Post-procedural complaints: none Patient Feedback: Patient satisfied with anesthetic care.
[2020-11-18] MEDS: DULoxetine HCL 20 MG CAPSULE.DR PO (08:39)
[2020-11-18] MEDS: SPIRONOLACTONE 50 MG TABLET 100 MG PO (08:39)
[2020-11-18 09:44] VITALS: BP 120/59; PULSE 94; RESP 16; TEMP 36.4; O2SAT 96
--- NOTE | 2020-11-18 11:47 | PM.DS ---
DS: Admitting Diagnosis Admitting Diagnosis Admitting Diagnosis: Pain complex were cyst DS: Summary Hospital Course Hospital Course: The patient was admitted through the emergency department. she underwent imaging which showed a complex right ovarian cyst. Hospital course was unremarkable.. She remained afebrile, she was up, ambulating without difficulty eating ambulating and generally without complains Time Spent with Patient Time attestation: Total time spent providing and/or coordinating discharge services: Exam Const: General: no acute distress Eyes: General: appearance normal, both eyes and all related structures Neck: Neck: supple and no JVD Thyroid: thyroid normal Resp: Effort & Inspection: normal respiratory effort Auscultation: clear to auscultation bilaterally Cardio: Rate: regular rate Rhythm: regular rhythm GI: Inspection: non-distended GI Palp: Yes Soft to palpation, No Tenderness to palpation present (GI) and No Guarding due to palpation present (GI) Auscultation: normal bowel sounds : General: Yes bladder normal to palpation External Female Exam: normal external appearance Speculum Exam - Vagina: normal vaginal discharge and No vaginal bleeding Speculum Exam - Cervix: nontender Bimanual exam- vagina & uterus: bladder normal to palpation and No Cervical tenderness present OB/external & speculum: No vaginal bleeding Skin: General skin exam: no rashes or lesions noted Extrem: General: normal to inspection and no edema Psych: Mental Status: mental status grossly normal Affect: normal affect DS: Data Data Completed and Pending Pending studies at discharge: Pending at discharge 11/17/20 10:17 Surgical [PTH] Routine Discharge Plan Discharge Attending physician on discharge: Peña See Discharging Clinician: Peña See Patient Disposition: Home, Self-Care Activity: may shower, no straining and pelvic rest Diet: heart healthy Wound Care Instructions: follow printed instructions Patient Instructions: Antibiotic Form, Ovarian Cyst (DC), Pain Management (DC) Stand Alone Forms: General Discharge Information Follow-up/Referrals: Peña See MD [Physician] - Discharge Medications: New oxycodone-acetaminophen [Percocet] 5-325 mg tablet 1 tablet PO Q4H PRN (Reason: pain) Qty: 30 RF: 0 Continued metformin 500 mg tablet 500 mg PO BID RF: 0 Lupron Depot (3 month) 11.25 mg syringe kit 11.25 mg IM [id number] RF: 0 spironolactone 50 mg tablet 100 mg PO BID RF: 0 duloxetine 20 mg capsule,delayed release(DR/EC) 20 mg PO DAILY RF: 0 Date of admission: 11/16/20 08:23 Primary Care Provider: Misael Stanton Admitting Provider: Peña See Attending physician on admission: Peña See Condition: Stable
== END 2020-11-18 13:45 | disposition home or self-care (01) ==
LOC: ANHED 08:30 → ANH2MED 13:26
PROVIDERS: Admitting Provider Obstetrics & Gynecology; Emergency Provider General Practice; PCP Family Medicine; Visit Provider Obstetrics & Gynecology
PROC: (CPT 49320; principal; 2020-11-17 10:00)
DX: D27.0 Benign neoplasm of right ovary (principal); E28.2 Polycystic ovarian syndrome; E66.01 Morbid (severe) obesity due to excess calories; Z68.42 Body mass index [BMI] 45.0-49.9, adult
CPT/HCPCS: 58661; 36415; 76830; 76856; 80053; 81001; 81025; 85025; 87086; 87088; 88305; 96361; 96374; 96375; 96376; 99285; A9270; G0378; J1170; J1885; J2250; J2405; J3010; J7030; J7120

== ENCOUNTER 2021-02-06 08:09 | Outpatient (CLI) | payer OTHER, SELFPAY ==
[2021-02-06 08:32] LABS: Hematocrit 41.2 % (37.0-47.0); Hemoglobin 12.7 g/dL (12.0-15.0); Mean Corpuscular HGB Conc 30.8 g/dl (32-36); Mean Corpuscular Volume 84.3 fl (80-100); Platelet Count Result 306 k/mm3 (150-375); Red Blood Count 4.89 M/mm3 (4.2-5.4); Red Cell Distribution Width 14.2 % (11.5-14.5); White Blood Count 10.3 K/mm3 (4.5-10.0)
[2021-02-06 08:54] LABS: Anion Gap 9 mmol/L (8-16); Blood Urea Nitrogen 11 mg/dL (7-17); Calcium 9.3 mg/dL (8.4-10.2); Carbon Dioxide 29 mmol/L (22-30); Chloride 102 mmol/L (98-107); Estimated Glomerular Filt Rate > 60; Glucose 104 mg/dL (65-110); Potassium 4.5 mmol/L (3.4-5.0); Sodium 140 mmol/L (137-145)
== END 2021-02-06 08:10 | disposition home or self-care (01) ==
LOC: ANHSURGERY 08:15
PROVIDERS: Anesthesiology; PCP Family Medicine; Visit Provider Student in an Organized Health Care Education/Training Program
DX: Z01.812 Encounter for preprocedural laboratory examination (principal); R10.2 Pelvic and perineal pain; Z51.81 Encounter for therapeutic drug level monitoring; Z79.899 Other long term (current) drug therapy
CPT/HCPCS: 36415; 80048; 85027; 86850; 86900; 86901

== ENCOUNTER 2021-02-10 01:16 | Day surgery (SDC) | payer OTHER, SELFPAY ==
[2021-02-04 13:07] VITALS: BMI 47.9
[2021-02-10] VITALS (13 sets, daily range): BP systolic 112–137; BP diastolic 62–80; PULSE 69–106; RESP 14–20; TEMP 36.6–36.9; O2SAT 95–100
[2021-02-10] MEDS: ACETAMINOPHEN 500 MG TABLET 1000 MG PO (06:36)
[2021-02-10] MEDS: KETOROLAC 15 MG/ML VIAL (*BKC) IV PUSH (06:37)
[2021-02-10] MEDS: LACTATED RINGERS 1,000 ML 30 ML IV CONT ×2 (06:49→09:09)
--- NOTE | 2021-02-10 06:59 | WPDANESEPPF ---
Anes - Initial Pre Proc Eval Procedure: Operation Date: 02/10/21 07:30 Proposed Procedures p Robotic Total Laparoscopic Hysterectomy - Johny Singh MD Date/Time: 02/10/21 06:59 Surgeon: Johny Singh MD Pre Op Diagnosis: pelvic pain Patient Data Age: 30 Gender: F Height: 1.74 m Weight: 145.15 kg Allergies Allergy/AdvReac Type Severity Reaction Status Date / Time latex Allergy Severe rash, Verified 02/04/21 13:14 swelling Home Medications Medication Instructions Recorded Confirmed Type spironolactone 50 mg PO BID 02/06/20 02/04/21 History metformin 500 mg tablet 500 mg PO BID 08/19/20 02/04/21 History duloxetine 20 mg PO DAILY 11/16/20 02/04/21 History oxycodone-acetaminophen [Percocet] 1 tablet PO Q4H PRN #30 tablet 11/18/20 02/04/21 Rx bupropion HCl 150 mg PO DAILY 02/04/21 02/04/21 History Patient hx anesthesia problems: none Family hx anesthesia problems: none PMFSH Past Medical History Medical History Adult BMI 40.0-44.9 kg/sq m Diarrhea Morbid (severe) obesity due to excess calories Morbid obesity Polycystic ovarian syndrome Smell and taste disorder Taste absent Surgical History Surgical History Hx of removal of ovary Family History Family History Mother No problems noted. 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 Questions were solicited and answers provided to the satisfaction of the patient/family/POA.
--- NOTE | 2021-02-10 07:19 | PM.IMHP ---
H&P: HPI History of Present Illness Date/Time: 02/10/21 07:19 30 yo female who presents today for robotic assisted TLH for pelvic pain and PCOS. Pt has chronic history of painful ovarian cysts. She is s/p bilateral salpingo-oophrectomy for large symptomatic ovarian cysts. Pt now request total hysterectomy. Chief Complaint: Pelvic pain PCOS Review of Systems Cardiovascular: Cardiovascular: Denies chest pain, Denies leg edema, Denies palpitations, Denies dyspnea and Denies dyspnea on exertion Respiratory: Respiratory: Denies cough, Denies dyspnea and Denies dyspnea on exertion Gastrointestinal: Gastrointestinal: Denies abdominal pain, Denies constipation, Denies diarrhea, Denies nausea and Denies vomiting Genitourinary: Genitourinary: Denies hematuria, Denies urinary frequency, Denies dysuria, Denies pelvic pain, Denies urinary incontinence and Denies vaginal discharge Neurologic: Reports system reviewed and no additional complaints, except as documented Psychiatric: Psychiatric: Reports no additional psychiatric complaints Endocrine: Endocrine: Denies palpitations PMFSH Past Medical History Medical History Adult BMI 40.0-44.9 kg/sq m Diarrhea Morbid (severe) obesity due to excess calories Morbid obesity Polycystic ovarian syndrome Smell and taste disorder Taste absent Surgical History Surgical History Hx of removal of ovary Family History Family History Mother No problems noted. 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 Spiritual care concerns: No Meds Home Medications and Allergies Home Medications Medication Instructions Recorded Confirmed Type spironolactone 50 mg PO BID 02/06/20 02/04/21 History metformin 500 mg tablet 500 mg PO BID 08/19/20 02/04/21 History duloxetine 20 mg PO DAILY 11/16/20 02/04/21 History oxycodone-acetaminophen [Percocet] 1 tablet PO Q4H PRN #30 tablet 11/18/20 02/04/21 Rx bupropion HCl 150 mg PO DAILY 02/04/21 02/04/21 History Allergies Allergy/AdvReac Type Severity Reaction Status Date / Time latex Allergy Severe rash, Verified 02/04/21 13:14 swelling Exam Const: General: no acute distress Eyes: EOM: EOMs intact bilaterally Neck: Neck: supple Thyroid: thyroid normal Chest: Breast/axilla inspection: normal inspection of the breasts Breast/axilla palpation: normal palpation of the breasts, normal palpation of the axillae and no axillary lymphadenopathy Resp: Effort & Inspection: normal respiratory effort Auscultation: clear to auscultation bilaterally Cardio: Rate: regular rate Rhythm: regular rhythm GI: Inspection: non-distended GI Palp: Yes Soft to palpation, No Tenderness to palpation present (GI) and No Guarding due to palpation present (GI) Auscultation: normal bowel sounds : General: No bladder normal to palpation External Female Exam: normal external appearance Speculum Exam - Vagina: normal vaginal discharge and No vaginal bleeding Speculum Exam - Cervix: nontender Bimanual exam- vagina & uterus: No bladder normal to palpation and No Cervical tenderness present OB/external & speculum: No vaginal bleeding Skin: General skin exam: normal color and no rashes or lesions noted Neuro: Cognition (Neuro): normal cognition Speech: normal speech Extrem: General: normal to inspection and no edema Psych: Mental Status: mental status grossly normal Affect: normal affect Assessment a
--- NOTE | 2021-02-10 07:22 | WPDHPUPDATE1 ---
History and Physical Update Update Date/Time: 02/10/21 07:22 History and Physical has been reviewed, including an updated exam of the patient. There are NO changes in the patient's condition. Risks, benefits, and alternatives have been discussed and questions answered. Patient agrees to proceed with procedure.
[2021-02-10] MEDS: ceFAZolin 3 GM/D5W 100 ML 100 ML IVPB (07:33)
[2021-02-10] MEDS: LIDO 1%/EPINEPHRINE 1:100,000 20 ML VIAL 15 ML INFILTRATE (08:22)
--- NOTE | 2021-02-10 09:05 | W.PM.PROC2 ---
Procedure Note - Detailed Date of Procedure 02/10/21 Pre-op Diagnosis pelvic pain Post-op Diagnosis same Procedure Performed robotic assisted total laparoscopic hysterectomy Surgeon Johny Singh MD Anesthesia general Indications pelvic pain Findings moderate amount of omental adhesions to the left fundal uterine serosa. Surgically absent bilateral fallopian tubes and ovaries. Description of Procedure After the patient was appropriately consented she was taken to the operating room where she was transferred to the table in a dorsal supine position. General anesthesia was then induced with endotracheal intubation. The patient was transferred to a dorsal lithotomy position using adjustable yellow-fin stirrups. Her position was adjusted for appropriate support of her lower back and lower extremities. The patient was prepped and draped. A transurethral barfield catheter was place. The cervix was sequentially dilated and a MIRLANDE uterine manipulator placed in typical fashion about a 3.5 cm ASHLIE ring. Gloves were changed. After confirmation of a functioning orogastric tube, lidocaine was injected at Castro's point in the LUQ and a 8mm incision was made. A 5mm Optiview trocar was then inserted into the abdominal cavity under direct visualization and done so without complication. The abdomen was then insufflated with approximately 2-3L of CO2 establishing a pneumoperitoneum and the patient was placed in Trendelenburg position. Just above the umbilicus in the midline, a 8 mm incision made after injection of lidocaine and a 8 mm bladeless trocar advanced into the abdominal cavity under direct visualization without incident. We subsequently placed two robotic ports in a similar fashion, one in the left mid-quadrant and one in the right, 10cm lateral to the midline port. The robot was then docked. The pelvis was inspected and there was noted to be adhesions between the bowel omentum and the uterine serosa at the area of previous salpingo-oophorectomy. These adhesions were taken down with monopolar scissors. The Left round ligament was divided and the pararectal and paravesicle spaces developed, identifying the course of the ureter. The posterior aspect of the broad ligament was then skeletonized down to the level of the internal cervical os, mobilizing the ureter laterally. The bladder flap was then created sharply. The ipsilateral uterine artery was skeletonized, bipolar cauterized and transected. A similar procedure was performed on the contralateral side, developing the pelvic spaces, completing the bladder flap, and skeletonizing, ligating, and dividing the uterine artery on this side. We ensured the vaginal pneumo-occluder balloon was insufflated and made a circumferential colpotomy using monopolar current. The uterus and cervix were then delivered transvaginally. I then placed one figure of eight suture of 0-vicryl in the left apex of the vaginal cuff. I then re-approximated the colpotomy with a running #1 PDO Quill suture in 2 layers. Following this dissection, the abdomen and pelvis were copiously irrigated and all surgical sites found to be hemostatic. Skin sites were reapproximated with 4-0 Vicryl in a subcuticular fashion. Steri-Strips were placed. The patient tolerated the procedure well. Sponge, needle and instrument counts were correct x 2 and the patient was taken to recovery in stable condition. Ancef was given for antimicrobial prophylaxis. The patient had SCD's on for VTE prophylaxis during the entire procedure. Estimated Blood Loss 50 Drains No Packing No Pathology yes (uterus and cervix) Complications No immediate complications Condition stable Disposition PACU
[2021-02-10] MEDS: ONDANSETRON INJ 4 MG/2 ML VIAL IV PUSH (09:21)
[2021-02-10] MEDS: HYDROmorphone HCL INJ (*CRX) 1 MG/ML SYR 0.25 MG IV PUSH ×3 (10:33→10:43)
[2021-02-10] MEDS: DEXTROSE 5%/LACTATED RINGERS 1,000 ML 125 ML IV CONT (11:45)
[2021-02-10] MEDS: KETOROLAC 30 MG/ML VIAL (*BKC) IV PUSH (11:48)
--- NOTE | 2021-02-10 16:11 | PC.NURSE ---
This patient, Janis Cardoso, was received from PACU on 02/10/21 at 1115. Patient/family oriented to unit policies and routines
[2021-02-10] MEDS: HYDROcodone/acetaminophen (*CRX) 5-325 MG TABLET 1 TAB PO ×2 (16:27→21:13)
[2021-02-10] MEDS: IBUPROFEN 600 MG TABLET PO (21:13)
[2021-02-10] MEDS: SENNA/DOCUSATE SODIUM TABLET 2 TAB PO (21:13)
[2021-02-10] MEDS: metFORMIN HCL 500 MG TABLET PO (21:13)
[2021-02-11 05:20] VITALS: BP 114/70; PULSE 90; RESP 16; TEMP 36.7
[2021-02-11] MEDS: IBUPROFEN 600 MG TABLET PO (05:52)
[2021-02-11] MEDS: HYDROcodone/acetaminophen (*CRX) 5-325 MG TABLET 1 TAB PO ×2 (05:52→09:20)
--- NOTE | 2021-02-11 07:16 | PM.DS ---
DS: Admitting Diagnosis Admitting Diagnosis pelvic pain DS: Summary Hospital Course Hospital Course: Janis Cardoso was admitted after robotic assisted total laparoscopic hysterectomy for pelvic pain. The above procedure was performed with no complications. She is doing well post op. She states her pain is well controlled with PO medications. She reports minimal bleeding. She is ambulating up to the chair. Her barfield catheter was removed. She is tolerating PO without N/V. She reports passing flatus. Status at Discharge Overall status at discharge: patient is progressing back to baseline Time Spent with Patient Time attestation: Total time spent providing and/or coordinating discharge services: Time spent: Less than 30 minutes Exam Const: General: comfortable and no acute distress Limitations: no limitations Resp: Effort & Inspection: normal respiratory effort Auscultation: clear to auscultation bilaterally Cardio: Rate: regular rate Rhythm: regular rhythm GI: Inspection: non-distended GI Palp: Yes Soft to palpation, Yes Tenderness to palpation present (GI) (milder tenderness to deep palpation) and No Guarding due to palpation present (GI) Auscultation: normal bowel sounds Other: incisions C/D/I covered with dermabond Urinary Catheter: Urinary Catheter: urine clear Skin: General skin exam: normal color Extrem: General: normal to inspection Psych: Mental Status: mental status grossly normal Affect: normal affect DS: Data Data Completed and Pending Pending studies at discharge: Pending at discharge 02/10/21 08:54 Surgical [PTH] Routine Discharge Plan Discharge Patient Disposition: Home, Self-Care Patient Instructions: Pain Management (DC), Laparoscopic Hysterectomy (DC) Follow-up/Referrals: Johny Singh MD [Physician] - 2 Weeks Discharge Medications: New sennosides-docusate sodium [Senokot-S] 8.6-50 mg Tablet 2 tab-cap PO HS Qty: 30 RF: 0 ibuprofen 600 mg Tablet 600 mg PO Q6H PRN (Reason: Cramping) Qty: 30 RF: 0 oxycodone-acetaminophen 5-325 mg tablet 1 tablet PO Q6H PRN (Reason: pain) Qty: 28 RF: 0 Continued metformin 500 mg tablet 500 mg PO BID RF: 0 duloxetine 20 mg capsule,delayed release(DR/EC) 20 mg PO DAILY RF: 0 oxycodone-acetaminophen [Percocet] 5-325 mg tablet 1 tablet PO Q4H PRN (Reason: pain) Qty: 30 RF: 0 bupropion HCl 150 mg tablet extended release 24 hr 150 mg PO DAILY RF: 0 Discontinued spironolactone 50 mg tablet 50 mg PO BID RF: 0
[2021-02-11 08:20] VITALS: BP 113/73; PULSE 70; RESP 18; TEMP 36.7; O2SAT 97
[2021-02-11] MEDS: buPROPion HCL XL (24 HR) 150 MG TABCR PO (09:20)
[2021-02-11] MEDS: DULoxetine HCL 20 MG CAPSULE.DR PO (09:21)
[2021-02-11] MEDS: metFORMIN HCL 500 MG TABLET PO (09:21)
--- NOTE | 2021-02-11 10:15 | PC.NURSE ---
PT received teaching for discharge and verbalized understanding.
[2021-02-11 10:35] VITALS: BP 113/73; PULSE 70; RESP 18; TEMP 36.7; O2SAT 97
--- NOTE | 2021-02-11 10:35 | PC.NURSE ---
PT discharged to home via wheelchair unaccompanied and taken to waiting car. Follow up appts confirmed.
--- NOTE | 2021-02-11 11:20 | PC.NURSE ---
Addendum entered by Mino Rosenberg RN 02/11/21 11:22: actual note was written for 0900 Original Note: Pt introductions made and plan of care discussed per post op obgyn specialist surgery, pain management, daily care activities and pending discharge. PT received such instructions per protocol, one to one discussion, demonstration. PT had no barriers to learning identified and was the only recipient of any instructions. PT verbalized understanding .
== END 2021-02-11 10:35 | disposition home or self-care (01) ==
LOC: ANHSURGERY 10:04 → ANHOB2 11:14
PROVIDERS: PCP Family Medicine; Visit Provider Student in an Organized Health Care Education/Training Program
PROC: (CPT 58572; principal; 2021-02-10 07:30)
DX: R10.2 Pelvic and perineal pain (principal); G89.29 Other chronic pain; E28.2 Polycystic ovarian syndrome; E66.01 Morbid (severe) obesity due to excess calories; Z68.42 Body mass index [BMI] 45.0-49.9, adult; Z79.84 Long term (current) use of oral hypoglycemic drugs
CPT/HCPCS: 58572; S2900; 88307; 99199; A9270; J0330; J0690; J1100; J1170; J1885; J2250; J2405; J2704; J2710; J3010; J7030; J7120; J7121

== ENCOUNTER 2023-05-30 12:36 | Outpatient (CLI) | payer OTHER, SELFPAY ==
--- NOTE | 2023-05-30 12:43 | ECG_ITS ---
Measurements Intervals [place] Rate: 89 P: 39 DC: 143 QRS: 35 QRSD: 94 T: 11 QT: 348 QTc: 426 Interpretive Statements SINUS RHYTHM BORDERLINE ST-T WAVE ABNORMALITY- ANT/INF LEADS BASELINE ARTIFACT- I, II, III, AVR, AVL, AVF, V1 BORDERLINE ECG COMPARED TO ECG 09/10/2020 11:45:24 ST-T WAVE ABNORMALITY NOW PRESENT Electronically Signed On 05-30-2023 13:11:23 [employer] SAL[employer] by Damien Gomez D.O.
[2023-05-30 13:27] LABS: Hematocrit 43.6 % (37.0-47.0); Hemoglobin 13.6 g/dL (12.0-15.0); Mean Corpuscular HGB Conc 31.2 g/dl (32-36); Mean Corpuscular Hemoglobin 25.6 pg (26-34); Platelet Count Result 311 k/mm3 (150-375); Red Blood Count 5.32 M/mm3 (4.2-5.4); Red Cell Distribution Width 13.5 % (11.5-14.5)
[2023-05-30 13:30] LABS: Appearance Urine Cloudy (Clear); Bacteria Urine 2+ /hpf; Bilirubin Urine Negative (Negative); Blood Urine Negative (Negative); Color Urine Yellow (Yellow); Glucose Urine UA Negative (Negative); Ketones Urine Negative (Negative); Leukocyte Esterase Ur 2+ LEU/UL (Negative); Nitrate Urine Negative (Negative); Non Pathogenic Casts 0-2; Protein Urine Negative (Negative); Specific Grav Ur 1.023 (1.001-1.035); Squamous Epithelial Cell Urine Occasional /hpf (Few); WBC Urine >100 /hpf; pH Urine 5.5 (5.0-9.0)
[2023-05-30 13:37] LABS: Prothrombin Time 13.1 Seconds (11.1-14.7)
[2023-05-30 13:38] LABS: Anion Gap 10 mmol/L (8-16); Blood Urea Nitrogen 12 mg/dL (7-17); Carbon Dioxide 28 mmol/L (22-30); Chloride 104 mmol/L (98-107); Estimated Glomerular Filt Rate > 60; Glucose 90 mg/dL (65-110); Partial Thromboplastin Time 28.4 SECONDS (22.3-36.8); Potassium 3.9 mmol/L (3.4-5.0); Sodium 142 mmol/L (137-145)
[2023-05-30 13:40] LABS: Add Urine Microscopic? YES
== END 2023-05-30 12:37 | disposition home or self-care (01) ==
PROVIDERS: PCP Family Medicine; Visit Provider Neurological Surgery
DX: M51.26 Other intervertebral disc displacement, lumbar region (principal); Z01.818 Encounter for other preprocedural examination; R94.31 Abnormal electrocardiogram [ECG] [EKG]
CPT/HCPCS: 36415; 80048; 81001; 85027; 85610; 85730; 87086; 87088; 93005

== ENCOUNTER 2023-06-07 01:48 | Day surgery (SDC) | payer OTHER, SELFPAY ==
[2023-05-26 14:56] VITALS: BMI 48.6
--- NOTE | 2023-05-26 15:05 | PC.NURSE ---
Report to the Outpatient Waiting Room, entrance under the green pavilion located off [facility], at time 6:00 on date 06/07/23. Planned Procedure Time: 7:30. Time changes happen often and if your time is changed the preop area will call you the afternoon before. - You and your visitor will be asked to self-screen and do not enter if you have any COVID symptoms. - A mask is optional within the hospital at this time. Patients may have clear liquids (water, carbonated beverages, clear teas, apple juice) until 3 hours prior to surgery with a maximum of 20 ounces. - No food from midnight until time of surgery Take the following medications with a SIP of water the morning of surgery: BUPROPION, DULOXETINE, TRAMADOL IF NEEDED DO NOT STOP ANY OF YOUR OTHER PRESCRIPTION MEDICATIONS PRIOR TO SURGERY ?EXCEPT THE FOLLOWING Medications to discontinue per physician: N/A Date to take last dose: N/A Please no make-up, nail yi, hairspray, perfume, deodorant, or body powder the day of surgery. No jewelry (including any body piercings) or valuables the day of surgery, leave them at home. Please take a shower or bath the night before, or the morning of, surgery with an antibacterial soap. Wear comfortable, loose fitting clothing. - Jewelry must be removed prior to entering the operating room. Rings and piercings that are not removed may be cut off. - The hospital will not accept responsibility for valuables. - Please leave all valuables, including medications, at home the day of surgery. If you are going home after surgery, a licensed short haul driver must drive you home. - NO public transportation without another adult if you receive anesthesia. - We recommend that an adult stay with you for 24 hours following discharge. - We also recommend that you do not drive, make important decision, drink alcoholic beverages, or take any drugs that were not prescribed by your health care provider for at least 24 hours after your discharge time. Follow any additional instructions given to you from your surgeon. If you or anyone in your household have experienced Covid symptoms in the past week, please notify your surgeon or the nurse liaison at the phone number below for possible testing. Telephone instructions given to PT - ESA BRITO and asked if any additional questions and then verbalized understanding. Patient advised to call surgeon office or pre surgery nurse liaison [phone] if any additional questions.
--- NOTE | 2023-06-06 15:07 | WPDANESEPPF ---
Anes - Initial Pre Proc Eval Procedure: Operation Date: 06/07/23 07:30 Proposed Procedures p Left L4-5 Lumbar Microdiscectomy - Cameron Laughlin MD Date/Time: 06/06/23 15:07 Surgeon: Cameron Laughlin MD Pre Op Diagnosis: Left L4-5 Herniated Nucleus Pulposus Patient Data Age: 33 Gender: F Height: 1.74 m Weight: 147.45 kg Allergies Allergy/AdvReac Type Severity Reaction Status Date / Time latex Allergy Severe rash, Verified 05/26/23 14:55 swelling gabapentin AdvReac Severe hives Uncoded 05/26/23 14:55 Home Medications Medication Instructions Recorded Confirmed Type cyclobenzaprine 10 mg tablet 10 mg PO .hs PRN muscle spasm #20 08/18/22 05/26/23 Rx tabs duloxetine 20 mg capsule,delayed 20 mg PO DAILY #30 caps 08/18/22 05/26/23 Rx release estradiol 1 mg tablet 1 mg PO DAILY #30 tabs 08/18/22 05/26/23 Rx metformin 500 mg tablet 500 mg PO BID #60 tabs 08/18/22 05/26/23 Rx bupropion HCl 150 mg 24 hr tablet, 150 mg PO DAILY #30 tabs 09/23/22 05/26/23 Rx extended release tramadol 50 mg tablet 50 mg PO Q8H PRN pain #60 tabs 01/17/23 05/26/23 Rx Patient hx anesthesia problems: none Family hx anesthesia problems: none Results Review: All pre-operative results and documents have been reviewed as part of the pre-operative evaluation. [facility] Past Medical History Medical History (Updated 06/06/23 @ 15:08 by Aneudy Oro DO) Adult BMI 40.0-44.9 kg/sq m Adult BMI 50.0-59.9 kg/sq m Anxiety Chronic pain Diarrhea Morbid (severe) obesity due to excess calories Morbid obesity Polycystic ovarian syndrome PONV (postoperative nausea and vomiting) Smell and taste disorder Taste absent Surgical History Surgical History H/O: hysterectomy Hx of removal of ovary Family History Family History Father Diabetes mellitus Family history of diabetes mellitus in first degree relative Blood clot in vein Mother Hypertension Depression Social History Social History Smoking status: Never smoker Second hand tobacco smoke exposure: No Alcohol intake: never Substance use: never Substance use type: does not use Lack of Transportation: No Lack of Food: Never True Current Housing: I Have Housing Concerned About Future Housing: No Difficulty Paying Gas/Electric Bills: No Difficulty Paying for Meds: No Currently Unemployed: No Education: High School Diploma/GED Difficulty w/ Childcare or Family Care: No Living arrangements: with friend(s) Occupation/Education: occupation 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 Gender identity (if verbalized by the patient): Female Spiritual care concerns: No Anes - Eval Final PreProcedure Day of Procedure 06/06/23 15:07 Patient weight: morbidly obese Heart: regular rate and rhythm Lungs: clear to auscultation Airway: Mallampati scale class II Neurological: alert and oriented Last oral intake: >/= 8 hours ASA classification: III Emergent: no Anesthetic plan: proceed Anesthesia type and monitoring: general ETT and standard monitoring Results Review: All pre-operative results and documents have been reviewed as part of the pre-operative evaluation. Informed Consent: The patient's anesthetic plan and its attendant risks and benefits were discussed with the patient/family/POA. Questions were solicited and answers provided to the satisfaction of the patient/family/POA.
[2023-06-07] VITALS (12 sets, daily range): BP systolic 121–148; BP diastolic 63–95; PULSE 61–108; RESP 12–18; TEMP 35.5–37.6; O2SAT 93–100
--- NOTE | ~2023-06-07 | XR_ITS ---
XR fluoroscopy no charge Indication: Lumbar microdiscectomy TECHNIQUE: Fluoroscopy used during Lumbar microdiscectomy performed by [Cameron Laughlin MD] o n 06/07/2023. 5 seconds of fluoroscopy with 2 fluoroscopic images captured. FINDINGS: Correlate with procedure note. IMPRESSION: Fluoroscopy used during Lumbar microdiscectomy at the L4-5 level. Correlate with procedur al note. Reviewed, dictated and finalized at location L. ER CHECKER IMPRESSION: Fluoroscopy used during Lumbar microdiscectomy at the L4-5 level. C orrelate with procedural note.
[2023-06-07] MEDS: LACTATED RINGERS 1,000 ML 30 ML IV CONT ×2 (06:24→09:56)
--- NOTE | 2023-06-07 07:36 | PM.IMHP ---
H&P: HPI History of Present Illness Date/Time: 06/07/23 07:36 Chief Complaint: Back and left leg pain Narrative: Janis is a 33-year-old female with back and left leg pain related to a herniated disc, left L4-5 presents for microscopic lumbar diskectomy. She has not changed appreciably since we last saw her. She does not have specific muscle group weakness. She has occasional dermatomal numbness. She is not having bowel or bladder difficulty. Review of Systems Review of Systems: Patient denies shortness of breath, cough, fever, chills, nausea, vomiting, weight loss, weight gain, chest pain, dysuria. She has back and leg pain as above. Review of systems is otherwise negative on 12 systems except as noted elsewhere. [facility] Past Medical History Medical History (Updated 06/06/23 @ 15:08 by Aneudy Oro, ) Adult BMI 40.0-44.9 kg/sq m Adult BMI 50.0-59.9 kg/sq m Anxiety Chronic pain Diarrhea Morbid (severe) obesity due to excess calories Morbid obesity Polycystic ovarian syndrome PONV (postoperative nausea and vomiting) Smell and taste disorder Taste absent Surgical History Surgical History H/O: hysterectomy Hx of removal of ovary Family History Family History Father Diabetes mellitus Family history of diabetes mellitus in first degree relative Blood clot in vein Mother Hypertension Depression Social History Social History Smoking status: Never smoker Second hand tobacco smoke exposure: No Alcohol intake: never Substance use: never Substance use type: does not use Lack of Transportation: No Lack of Food: Never True Current Housing: I Have Housing Concerned About Future Housing: No Difficulty Paying Gas/Electric Bills: No Difficulty Paying for Meds: No Currently Unemployed: No Education: High School Diploma/GED Difficulty w/ Childcare or Family Care: No Living arrangements: with friend(s) Occupation/Education: occupation 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 Gender identity (if verbalized by the patient): Female Spiritual care concerns: No Meds Home Medications and Allergies Home Medications Medication Instructions Recorded Confirmed Type cyclobenzaprine 10 mg tablet 10 mg PO .hs PRN muscle spasm #20 08/18/22 06/07/23 Rx tabs duloxetine 20 mg capsule,delayed 20 mg PO DAILY #30 caps 08/18/22 06/07/23 Rx release estradiol 1 mg tablet 1 mg PO DAILY #30 tabs 08/18/22 06/07/23 Rx metformin 500 mg tablet 500 mg PO BID #60 tabs 08/18/22 06/07/23 Rx bupropion HCl 150 mg 24 hr tablet, 150 mg PO DAILY #30 tabs 09/23/22 06/07/23 Rx extended release tramadol 50 mg tablet 50 mg PO Q8H PRN pain #60 tabs 01/17/23 06/07/23 Rx Allergies Allergy/AdvReac Type Severity Reaction Status Date / Time latex Allergy Severe rash, Verified 06/07/23 07:01 swelling gabapentin AdvReac Severe hives Uncoded 06/07/23 07:01 Vital Signs Vital Signs - 24 hr 06/07/23 05:59 Temperature 96 F L Pulse Rate 99 Respiratory Rate 18 Blood Pressure 138/80 Pulse Oximetry 100 Oxygen Delivery Room Air Exam Narrative: Strength is 5/5 in all muscle groups of the bilateral lower extremities. Sensation is intact light touch throughout the lower extremities. Breathing is nonlabored Regular rate and rhythm Assessment and Plan Assessment and plan (1) Lumbar herniated disc: Code(s): M51.26 - Other intervertebral disc displacement, lumbar region Status: Acute Assessment and Plan: Janis is a 33-year-old female with back and leg pain related to herniated disc, left L4-5 presents for microscopic lumbar diskectomy. I described to her again that operation, its risks, potential benefits, the operative an
--- NOTE | 2023-06-07 07:38 | WPDHPUPDATE1 ---
History and Physical Update Update Date/Time: 06/07/23 07:38 History and Physical has been reviewed, including an updated exam of the patient. There are NO changes in the patient's condition. Risks, benefits, and alternatives have been discussed and questions answered. Patient agrees to proceed with procedure.
[2023-06-07] MEDS: ceFAZolin 3 GM/D5W 100 ML 100 ML IVPB (07:41)
[2023-06-07] MEDS: LIDO 1%/EPINEPHRINE 1:100,000 50 ML VIAL 10 ML INFILTRATE (08:31)
--- NOTE | 2023-06-07 09:50 | P.OP_ITS ---
Procedure Note - Detailed Date of Procedure 06/07/23 Pre-op Diagnosis Left L4-5 Herniated Nucleus Pulposus Post-op Diagnosis Same Procedure Performed Left L4-5 microscopic lumbar diskectomy Surgeon Cameron Laughlin MD Anesthesia General Description of Procedure Patient was brought to the operating room in the supine position, was sedated, intubated under general anesthesia in routine fashion. She was then turned into the prone position on a Matthew frame. The of operation back was examined, marked for incision, prepped and draped in routine sterile fashion. Incision was marked over the L4 and L5 spinous processes in the midline. This area was injected with 0.5% lidocaine with [id number] epinephrine. Intravenous antibiotics given prior to incision. Incision was made with a 10 blade scalpel down to the lumbodorsal fascia. Subperiosteal dissection muscle soft tissue away from spinous process and lamina at L4-5 on the left was performed with a subperiosteal elevator and Bovie cautery. A verifying x-rays obtained to verify the level of operation. At the L4-5 level on the left a Midas Patrick drill was used to perform a hemilaminectomy and medial facetectomy. Under microscopy the yellow ligament was lifted removed piecemeal using Kerrison punches. A plane was dissected in the lateral epidural space down to the ventral epidural space. The thecal sac was retracted medially. The ligament was entered using an 11 blade scalpel. An Kit curette, curved curette and Fox rongeur were used to push free and removed fragments of herniated disc from beneath the nerve. Much of this was hard disc herniation. A limited bony foraminotomy was performed using a Midas Patrick drill, curved curette and Kerrison punches. A [place] instrument was placed in the ventral epidural space above and below the nerve root to confirm lack of compression. The wound was then copiously irrigated with bacitracin irrigation in all bleeding was stopped with bipolar and Bovie cautery and Gelfoam thrombin powder. Wound was then closed in layered fashion with 2-0 Vicryl interrupted sutures in the lumbodorsal fascia and Russell's layer. 3-0 Vicryl buried interrupted sutures were placed in the dermis and the skin was closed with a running 4-0 Monocryl subcuticular stitch and dressed with Dermabond. Patient was allowed to wake up in the operating room was taken to the recovery room in stable condition. There were no immediate complications of this operation. All counts were reported correct in the case. Blood loss was 25 cc. The patient was neurologically at her baseline postoperatively. CPT codes 28413, 03363 Estimated Blood Loss 25 IV Fluids 1,000 Complications None Condition Stable Disposition PACU [facility] Billing Surgery - Charge Forward: Surgery Billing
[2023-06-07] MEDS: fentaNYL CITRATE INJ (*CRX) 100 MCG/2 ML VIAL 25 MCG IV PUSH ×6 (10:02→11:47)
[2023-06-07] MEDS: oxyCODONE HCL (*CRX) 5 MG TAB IR PO (11:52)
== END 2023-06-07 12:31 | disposition home or self-care (01) ==
PROVIDERS: PCP Family Medicine; Visit Provider Neurological Surgery
PROC: (CPT 63005; principal; 2023-06-07 07:30)
DX: M51.26 Other intervertebral disc displacement, lumbar region (principal); E28.2 Polycystic ovarian syndrome; F41.9 Anxiety disorder, unspecified; E66.01 Morbid (severe) obesity due to excess calories; Z68.43 Body mass index [BMI] 50.0-59.9, adult; Z79.84 Long term (current) use of oral hypoglycemic drugs
CPT/HCPCS: 63030; 36415; 80048; 81001; 85027; 85610; 85730; 87086; 87088; 93005; 99199; A9270; J0690; J1100; J1170; J2250; J2405; J2704; J3010; J7120

== ENCOUNTER 2023-09-05 06:34 | Outpatient (CLI) | payer OTHER, SELFPAY ==
--- NOTE | ~2023-09-05 | MR_ITS ---
MRI of the lumbar spine Clinical History: Degenerative disc disease Technique: Axial T2-weighted images, and sagittal T1-weighted, T2-weighted, and T2 fat-sat images wer e acquired. Findings: There is no fracture or subluxation of the lumbar spine. Vertebral bodies maintain normal h eight and alignment. No suspicious bone marrow signal abnormality seen. At L1-L2 and L2-L3, intervertebral discs maintain normal signal interstitial. There are moderate face t joint degenerative changes at these levels, worse at L2-L3. No spinal canal stenosis or neural fora mercedez narrowing at these levels. At L3-L4, there is diffuse disc bulge with moderate facet arthropathy. No central canal stenosis or n eural foraminal narrowing. Tiny annular fissure present. At L4-L5, there is left paracentral disc protrusion superimposed upon mild disc bulge. There is mild facet arthropathy. No central canal stenosis. There is minimal right neural foraminal narrowing. Left neural foramen preserved. At L5-S1, there is minimal disc bulge in the right paracentral to right foraminal region. No central canal stenosis or definite neural foraminal narrowing. Paravertebral soft tissues are unremarkable. Impression: Mild degenerative spondylosis, as above. Reviewed, dictated and finalized at location . N SHELLER Impression: Mild degenerative spondylosis, as above.
== END 2023-09-05 06:35 | disposition home or self-care (01) ==
PROVIDERS: PCP Family Medicine; Visit Provider Physician Assistant
DX: M51.26 Other intervertebral disc displacement, lumbar region (principal); R20.2 Paresthesia of skin; M47.896 Other spondylosis, lumbar region
CPT/HCPCS: 72158; A9577

== ENCOUNTER 2024-09-06 10:34 | Outpatient (CLI) | payer OTHER, SELFPAY ==
[2024-09-06 12:40] LABS: Basophils Absolute Auto 0.1 K/mm3 (0.0-0.1); Basophils Percent Auto 0.7 % (0.2-1.2); Eosinophils Absolute Auto 0.2 K/mm3 (0-0.3); Eosinophils Percent Auto 2.4 % (0-4.4); Hematocrit 43.9 % (37.0-47.0); Hemoglobin 13.4 g/dL (12.0-15.0); Immature Granulocyte Absolute 0.02 K/mm3 (0.00-0.031); Immature Granulocyte Percent A 0.2 % (0-0.5); Lymphocytes Absolute Auto 3.56 K/mm3 (0.9-3.2); Lymphocytes Percent Auto 39.6 % (18.3-44.2); Mean Corpuscular HGB Conc 30.5 g/dl (32-36); Mean Corpuscular Hemoglobin 26.3 pg (26-34); Mean Corpuscular Volume 86.2 fl (80-100); Mean Platelet Volume 11.7 fl (7.4-10.4); Monocytes Absolute Auto 0.6 K/mm3 (0.1-0.6); Monocytes Percent Auto 6.3 % (2.6-8.5); Neutrophils Absolute Auto 4.6 K/mm3 (1.3-6.7); Neutrophils Percent Auto 50.8 % (45.5-73.1); Platelet Count Result 236 k/mm3 (150-375); Red Blood Count 5.09 M/mm3 (4.2-5.4); Red Cell Distribution Width 13.4 % (11.5-14.5)
[2024-09-06 13:33] LABS: Vitamin D 25 Hydroxy 35.4 ng/mL
[2024-09-06 18:27] LABS: Alanine Aminotransferase 31 U/L (6-35); Albumin Level 4.1 g/dL (3.5-5.1); Alkaline Phosphatase 105 U/L (38-126); Anion Gap 10 mmol/L (4-12); Aspartate Amino Transferase 42 U/L (14-36); Blood Urea Nitrogen 11 mg/dL (7-17); Calcium 9.5 mg/dL (8.4-10.2); Carbon Dioxide 31 mmol/L (22-30); Chloride 103 mmol/L (98-107); Cholesterol 192 mg/dL (0-200); Estimated Glomerular Filt Rate > 60; Glucose 71 mg/dL (65-110); HDL Direct 32 mg/dL; Iron 54 ug/dL (37-170); Percent Iron Saturation 20 % (20-50); Potassium 4.2 mmol/L (3.4-5.0); Sodium 144 mmol/L (137-145); Triglycerides 143 mg/dL (<150)
[2024-09-06 18:39] LABS: LDL Cholesterol Direct 124 mg/dL
[2024-09-06 19:00] LABS: Thyroid Stimulating Hormone 0.354 uIU/mL (0.465-4.680)
[2024-09-06 19:36] LABS: Folic Acid 4.5 ng/mL (2.76->20)
== END 2024-09-06 10:35 | disposition home or self-care (01) ==
LOC: ANHLAB 10:36
PROVIDERS: PCP Family Medicine; Visit Provider Family Medicine
DX: Z13.220 Encounter for screening for lipoid disorders (principal); E55.9 Vitamin D deficiency, unspecified; F41.8 Other specified anxiety disorders; E78.2 Mixed hyperlipidemia; E04.9 Nontoxic goiter, unspecified; E28.2 Polycystic ovarian syndrome; E66.01 Morbid (severe) obesity due to excess calories; Z90.3 Acquired absence of stomach [part of]
CPT/HCPCS: 36415; 80053; 80061; 82306; 82607; 82728; 82746; 83540; 83550; 84443; 85025